=== PATIENT | female | born 1950 | race Caucasian/White ===

== ENCOUNTER → 2018-05-26 | Outpatient (CLI) | payer MEDICARE ==
[~2018-05-26] MED LIST: ACETAMINOPHEN PO; ALLE12TA PO; ALPR-138 PO; ASPI81 PO; BUPR-197 PO; DEPA500T PO; ERGO50000; ESTR1 PO; FISH1000 PO; HYDROCODONE PO; LEVO25TA36 PO; LORT5TAB PO; LOVA10TA; PROT40TA PO; RISP1 PO; SERT100 PO; VITA100T15 PO
--- NOTE | 2018-05-27 08:50 | RSPPFT ---
DATE OF PROCEDURE: 05/26/18 COMMENTS: Spirometry shows FVC of 2.0 at 64% of predicted, FEV1 of 1.6 at 65%, FEV1/FVC ratio is normal. Flow is normal at FEF 25, FEF 50 but decreased at FEF 25-75. There is no response after bronchodilator treatment. Lung volumes show residual volume is decreased. TLC is decreased. Diffusion capacity is normal. Flow volume loop indicates a restrictive pattern. Room air arterial blood gases show pH of 7.38, PO2 of 43, PO2 of 82, BiCarb of 25 and Saturation at 94%. 6-minute walk test shows no de-saturation. IMPRESSION: 1. Mild restrictive lung disease. 2. No response after bronchodilator treatment. 3. Decreased lung volumes. 4. Normal diffusion capacity. 5. Blood gases shows normal oxygenation. 6. 6-minute walk test shows no de-saturation.
== END ==
LOC: HRSP 10:28
PROVIDERS: ATTEND Specialist
DX: R06.00 Dyspnea, unspecified (principal)
CPT/HCPCS: 36600; 82805; 94060; 94618; 94726; 94729